=== PATIENT | male | born 1985 | race Two or more races ===

== ENCOUNTER 2019-09-09 19:41 | Inpatient (IN) | payer MEDICAID, OTHER ==
[~2019-09-09] VITALS: Ht 177.8 cm; Wt 175.1 kg
[~2019-09-09 19:41] MED LIST: RISP3TAB6 PO
[2019-09-09 20:27] LABS: BASOPHILS % (AUTO) 0.7 % (0.0-2.0); EOSINOPHILS % (AUTO) 2.1 % (1.0-6.0); HEMATOCRIT 40.5 % (41-53); HEMOGLOBIN 14.1 g/dL (13.5-17.5); LYMPHOCYTES # (AUTO) 3.3 K/uL (1.0-4.8); LYMPHOCYTES % (AUTO) 32.1 % (22.0-44.0); MEAN CORPUSCULAR HEMOGLOBIN 29.8 pg (26.0-34.0); MEAN CORPUSCULAR HGB CONC 34.7 G/dL (31.0-37.0); MEAN CORPUSCULAR VOLUME 86 fL (80-100); MONOCYTES # (AUTO) 0.7 K/uL (0.1-1.0); MONOCYTES % (AUTO) 6.9 % (2.0-9.0); NEUTROPHILS % (AUTO) 58.2 % (40.0-70.0); PLATELET COUNT (AUTO) 348 K/uL (150-450); RED BLOOD CELL COUNT(AUTO) 4.72 MIL/uL (4.50-5.90); RED CELL DISTRIBUTION WIDTH 14.3 % (11.5-14.5)
[2019-09-09 20:37] LABS: ANION GAP 5 mmol/L (8-16); CALCIUM, TOTAL 8.9 mg/dL (8.8-10.5); CARBON DIOXIDE 29 mmol/L (22-29); CHLORIDE 103 mmol/L (98-107); GLOMERULAR FILTR. RATE CALC > 60 mL/min (>60); GLUCOSE,RANDOM 143 mg/dL (70-110); POTASSIUM 3.6 mmol/L (3.5-5.1); SODIUM SERUM 137 mmol/L (136-145); UREA NITROGEN, BLOOD 8 mg/dL (7-18)
[2019-09-09 20:40] LABS: AMPHET/METH SCREEN,URINE POSITIVE (NEGATIVE); BARBITURATE SCREEN, URINE NEGATIVE (NEGATIVE); BENZODIAZEPINES SCREEN,URINE NEGATIVE (NEGATIVE); CANNABINOID SCREEN,URINE NEGATIVE (NEGATIVE); COCAINE SCREEN,URINE NEGATIVE (NEGATIVE); METHADONE SCREEN, URINE NEGATIVE (NEGATIVE); OPIATE SCREEN,URINE NEGATIVE (NEGATIVE)
[2019-09-09 20:41] LABS: PHENCYCLIDINE SCREEN,URINE NEGATIVE (NEGATIVE)
[2019-09-09 20:52] LABS: ALANINE AMINOTRANSFERASE 94 U/L (12-78); ALBUMIN 2.9 g/dL (3.4-5.0); ALKALINE PHOSPHATASE 103 U/L (46-116); ASPARTATE AMINOTRANSFERASE 30 U/L (15-37); BILIRUBIN,TOTAL 0.4 mg/dL (0.1-1.0); TOTAL PROTEIN, SERUM 7.5 g/dL (6.4-8.2)
[2019-09-09] MEDS ORDERED: HALOPERIDOL 5 MG TABLET PO PRN (21:30)
[2019-09-09 21:42] LABS: APPEARANCE,URINE CLEAR (CLEAR); BILIRUBIN,URINE NEGATIVE (NEGATIVE); GLUCOSE, URINE (UA) NEGATIVE (NEGATIVE); KETONES,URINE NEGATIVE (NEGATIVE); LEUKOCYTE ESTERASE ,URINE NEGATIVE (NEGATIVE); NITRATE,URINE NEGATIVE (NEGATIVE); OCCULT BLOOD,URINE NEGATIVE (NEGATIVE); PH,URINE 5.5 (5.0-8.0); PROTEIN,URINE NEGATIVE (NEGATIVE)
[2019-09-10 00:45] VITALS: BP 133/76
[2019-09-10] MEDS: ZOLPIDEM TARTRATE 10 MG TABLET PO PRN (01:10)
[2019-09-10] MEDS ORDERED: PNEUMOCOCCAL VACCINE POLYVALENT 0.5 ML VIAL [PPSV23] IM ONE (02:00)
[2019-09-10 08:30] VITALS: BP 116/63
[2019-09-10] MEDS ORDERED: RISP2 PO (11:57)
[2019-09-10] MEDS ORDERED: NICOTINE 14 MG/24 HOUR PATCH TD PRN (15:45)
[2019-09-10] MEDS ORDERED: PETROLATUM,WHITE 28 GM JELLY TP PRN (15:45)
[2019-09-10] MEDS ORDERED: CloNIDine HCL 0.1 MG TABLET PO PRN (15:45)
[2019-09-10] MEDS ORDERED: MAGNESIUM HYDROXIDE SUSPENSION 30 ML UDCUP PO PRN (15:45)
[2019-09-10] MEDS ORDERED: DOCUSATE SODIUM 100 MG CAPSULE PO PRN (15:45)
[2019-09-10] MEDS ORDERED: ALBUTEROL SULFATE HFA 90 MCG/PUFF 8 GM INHALER IH PRN (15:45)
[2019-09-10] MEDS ORDERED: MAG HYDROX/AL HYDROX/SIMETH ES 30 ML SUSPENSION UDCUP PO PRN (15:45)
[2019-09-10] MEDS ORDERED: LOPERAMIDE HCL 2 MG CAPSULE PO PRN (15:45)
[2019-09-10] MEDS ORDERED: ACETAMINOPHEN 325 MG TABLET PO PRN (15:45)
[2019-09-10] MEDS ORDERED: GuaiFENesin/D-METHORPHAN [SUGAR-FREE] 200-20MG/10 ML SYRUP UDCUP PO PRN (15:45)
[2019-09-10] MEDS ORDERED: ONDANSETRON HCL 4 MG TABLET PO PRN (15:45)
[2019-09-10 16:10] VITALS: BP 128/73
[2019-09-10] MEDS: OLANZapine 5 MG TABLET PO SCH (16:52)
[2019-09-11 00:45] VITALS: BP 115/61
[2019-09-11 08:18] VITALS: BP 132/78
[2019-09-11] MEDS: OLANZapine 5 MG TABLET PO SCH ×2 (08:29→17:05)
[2019-09-11 08:33] LABS: CHOL/HDL RATIO 3.7 (4.2-7.3)
[2019-09-11 16:01] VITALS: BP 114/60
[2019-09-11] MEDS ORDERED: OLAN5TAB2 PO (18:42)
[2019-09-12 06:31] VITALS: BP 113/82
[2019-09-12] MEDS: OLANZapine 5 MG TABLET PO SCH ×2 (08:03→16:29)
[2019-09-12 16:11] VITALS: BP 118/69
[2019-09-13 06:18] VITALS: BP 96/45
[2019-09-13 08:31] VITALS: BP 100/48
[2019-09-13] MEDS: OLANZapine 5 MG TABLET PO SCH ×2 (08:43→16:57)
[2019-09-13 16:06] VITALS: BP 112/67
[2019-09-14] MEDS: ZOLPIDEM TARTRATE 10 MG TABLET PO PRN (01:45)
[2019-09-14 04:22] VITALS: BP 144/82
[2019-09-14] MEDS: OLANZapine 5 MG TABLET PO SCH ×2 (09:06→16:08)
[2019-09-14 17:16] VITALS: BP 125/76
[2019-09-15 00:47] VITALS: BP 126/67
[2019-09-15] MEDS: IBUPROFEN 400 MG TABLET PO PRN (06:24)
[2019-09-15 08:00] VITALS: BP 107/60
[2019-09-15] MEDS: OLANZapine 5 MG TABLET PO SCH ×2 (08:32→16:25)
[2019-09-15] MEDS: LORazepam 2 MG TABLET PO PRN (09:10)
[2019-09-15 16:12] VITALS: BP 103/69
[2019-09-16 02:39] VITALS: BP 120/80
[2019-09-16] MEDS: OLANZapine 5 MG TABLET PO SCH ×2 (08:35→16:18)
[2019-09-16 09:13] VITALS: BP 117/72
[2019-09-16] MEDS: LORazepam 2 MG TABLET PO PRN (10:11)
[2019-09-16 16:10] VITALS: BP 106/62
[2019-09-17 00:15] VITALS: BP 154/100
[2019-09-17 08:00] VITALS: BP 121/73
[2019-09-17 08:50] VITALS: BP 128/77
[2019-09-17] MEDS: IBUPROFEN 400 MG TABLET PO PRN (08:51)
[2019-09-17] MEDS: OLANZapine 5 MG TABLET PO SCH (08:51)
== END 2019-09-17 21:14 | disposition home or self-care (01) | DRG 750 ==
LOC: EMS 19:42 → B3A 22:50
PROVIDERS: ADMIT Psychiatry & Neurology Psychiatry; ATTEND Psychiatry & Neurology Psychiatry
DX: F20.0 Paranoid schizophrenia (principal); R45.851 Suicidal ideations; Z68.43 Body mass index [BMI] 50.0-59.9, adult; E78.00 Pure hypercholesterolemia, unspecified; I10 Essential (primary) hypertension; E66.9 Obesity, unspecified; F31.9 Bipolar disorder, unspecified; E78.5 Hyperlipidemia, unspecified; R74.0 Nonspecific elevation of levels of transaminase and lactic acid dehydrogenase [LDH]; F10.10 Alcohol abuse, uncomplicated; Y90.9 Presence of alcohol in blood, level not specified; F15.10 Other stimulant abuse, uncomplicated; F17.200 Nicotine dependence, unspecified, uncomplicated; F39 Unspecified mood [affective] disorder; Z28.21 Immunization not carried out because of patient refusal
CPT/HCPCS: 93005; G0480

== ENCOUNTER 2019-10-07 20:47 | Emergency (ER) | payer MEDICAID, OTHER ==
[~2019-10-07] VITALS: Ht 180.3 cm; Wt 136.4 kg
[~2019-10-07 20:47] MED LIST changes: +OLAN5TAB2 PO; -RISP3TAB6 PO
[2019-10-07 21:01] VITALS: BP 119/79
[2019-10-07 22:33] LABS: EOSINOPHILS % (AUTO) 1.3 % (1.0-6.0); HEMATOCRIT 41.7 % (41-53); HEMOGLOBIN 13.6 g/dL (13.5-17.5); LYMPHOCYTES % (AUTO) 29.2 % (22.0-44.0); MEAN CORPUSCULAR HEMOGLOBIN 28.1 pg (26.0-34.0); MEAN CORPUSCULAR HGB CONC 32.7 G/dL (31.0-37.0); MEAN CORPUSCULAR VOLUME 86 fL (80-100); MONOCYTES # (AUTO) 0.9 K/uL (0.1-1.0); MONOCYTES % (AUTO) 6.9 % (2.0-9.0); NEUTROPHILS # (AUTO) 8.4 K/uL (1.8-7.7); NEUTROPHILS % (AUTO) 61.6 % (40.0-70.0); PLATELET COUNT (AUTO) 346 K/uL (150-450); RED BLOOD CELL COUNT(AUTO) 4.85 MIL/uL (4.50-5.90); RED CELL DISTRIBUTION WIDTH 14.4 % (11.5-14.5)
[2019-10-07 22:47] LABS: ANION GAP 10 mmol/L (8-16); CALCIUM, TOTAL 9.1 mg/dL (8.8-10.5); CARBON DIOXIDE 27 mmol/L (22-29); CHLORIDE 102 mmol/L (98-107); CREATININE 0.74 mg/dL (0.60-1.30); GLOMERULAR FILTR. RATE CALC > 60 mL/min (>60); GLUCOSE,RANDOM 117 mg/dL (70-110); POTASSIUM 3.6 mmol/L (3.5-5.1); SODIUM SERUM 139 mmol/L (136-145); UREA NITROGEN, BLOOD 9 mg/dL (7-18)
[2019-10-07 22:53] LABS: ALANINE AMINOTRANSFERASE 84 U/L (12-78); ALBUMIN 2.9 g/dL (3.4-5.0); ALKALINE PHOSPHATASE 88 U/L (46-116); ASPARTATE AMINOTRANSFERASE 29 U/L (15-37); BILIRUBIN,TOTAL 0.3 mg/dL (0.1-1.0); TOTAL PROTEIN, SERUM 7.5 g/dL (6.4-8.2)
== END 2019-10-07 23:59 | disposition left against medical advice (07) ==
LOC: EMS 20:48
DX: R06.02 Shortness of breath (principal); Z53.21 Procedure and treatment not carried out due to patient leaving prior to being seen by health care provider
CPT/HCPCS: 80053; 85025; G0480